=== PATIENT | female | born 1970 | race Caucasian/White ===

== ENCOUNTER 2024-07-29 09:06 | Inpatient (IN) ==
[2024-07-29] MEDS ORDERED: IOPAMIDOL 100 ML BOTTLE IV ONE (09:07)
[2024-07-29] MEDS: IPRATROPIUM/ALBUTEROL 3 ML AMPUL.NEB NEB ONE ×2 (09:30)
[2024-07-29 09:36] LABS: Basophils # (Auto) 0.01 K/mcL (0.00-0.30); Basophils % (Auto) 0.1 % (0.0-2.0); Eosinophils # (Auto) 0 K/mcL (0.00-0.70); Eosinophils % (Auto) 0 % (0.0-7.0); Hematocrit 44.7 % (34.1-44.9); Lymphocytes # (Auto) 1.92 K/mcL (1.50-4.80); Lymphocytes % (Auto) 14.6 % (15.5-49.0); Mean Cell Volume 92.4 fL (80.0-100.0); Mean Corpuscular HGB Conc 33.6 g/dL (31.0-36.0); Mean Platelet Volume 8.6 fL (8.8-12.5); Monocytes # (Auto) 0.45 K/mcL (0.10-0.90); Monocytes % (Auto) 3.4 % (1.0-12.0); Neutrophils % (Auto) 81.5 % (38.0-78.0); Platelet Count 304 K/mcL (140-440); RBC 4.84 M/mcL (3.59-5.38); Red Cell Distribution Width 13.9 % (11.5-14.5); WBC 13.2 K/mcL (4.5-11.0)
[2024-07-29 09:50] LABS: ABG Methemoglobin 0.3 % (0.4-1.5); VBG Base Excess -6 (-2-3); VBG HCO3 15.2 mmol/L (24.0-28.0); VBG Oxygen Saturation 91.8 % (40.0-70.0); VBG PCO2 22.8 mmHg (41.0-51.0); VBG PH 7.44 U (7.32-7.42); VBG PO2 121.9 mmHg (25.0-40.0); VBG Total CO2 15.9 mmol/L (25.0-29.0)
[2024-07-29 10:04] LABS: Blood Urea Nitrogen 16 mg/dL (6-20); Calcium 8.8 mg/dL (8.6-10.4); Carbon Dioxide 17 mmol/L (22-30); Chloride 102 mmol/L (96-108); Glomerular Filtration Rate 98; Glucose 161 mg/dL (70-105); Potassium 3.6 mmol/L (3.3-5.1); Sodium 136 mmol/L (133-145)
[2024-07-29] MEDS: methylPREDNISolone SOD SUCC 125 MG/2 ML VIAL IV ONE (10:05)
[2024-07-29] MEDS: cefTRIAXone 2 GM in DEXTROSE 5% IN WATER 50 ML IV ONE (10:58)
[2024-07-29] MEDS: AZITHROMYCIN 500 MG in 0.9 % SODIUM CHLORIDE 250 ML IV ONE (11:31)
[2024-07-29] MEDS ORDERED: ONDANSETRON 4 MG/2 ML VIAL IV PRN (14:16)
[2024-07-29] MEDS ORDERED: MAGNESIUM SULFATE 2 GM/50 ML BAG IV PRN (14:16)
[2024-07-29] MEDS ORDERED: POTASSIUM CHLORIDE 40 MEQ in DEXTROSE 5% IN WATER 500 ML IV PRN (14:16)
[2024-07-29] MEDS ORDERED: POLYETHYLENE GLYCOL 3350 17 GM PACKET PO PRN (14:16)
[2024-07-29] MEDS ORDERED: BENZOCAINE/MENTHOL 1 LOZENGE PO PRN (14:16)
[2024-07-29] MEDS ORDERED: METOCLOPRAMIDE 10 MG/2 ML VIAL IV PRN (14:16)
[2024-07-29] MEDS ORDERED: ACETAMINOPHEN 325 MG TABLET PO PRN (14:16)
[2024-07-29] MEDS ORDERED: POTASSIUM CHLORIDE 20 MEQ TABLET PO PRN ×2 (14:16)
[2024-07-29] MEDS ORDERED: SENNOSIDES 1 TABLET PO PRN (14:16)
[2024-07-29] MEDS: 0.9 % SODIUM CHLORIDE 10 ML SYRINGE IV SCH (16:15)
[2024-07-29] MEDS ORDERED: SUMAtriptan SUCCINATE 50 MG TABLET PO PRN (16:30)
[2024-07-29] MEDS: DOCUSATE SODIUM 100 MG CAPSULE PO SCH (22:24)
[2024-07-29] MEDS ORDERED: diphenhydrAMINE 25 MG CAPSULE PO PRN (22:37)
[2024-07-29] MEDS: MELATONIN 3 MG TABLET PO PRN (23:16)
[2024-07-29] MEDS: guaiFENesin/CODEINE 10 ML UDC PO PRN (23:16)
[2024-07-30] MEDS: MELATONIN 3 MG TABLET PO ONE (00:23)
[2024-07-30 07:16] LABS: Basophils # (Auto) 0.03 K/mcL (0.00-0.30); Basophils % (Auto) 0.2 % (0.0-2.0); Eosinophils # (Auto) 0 K/mcL (0.00-0.70); Eosinophils % (Auto) 0 % (0.0-7.0); Hematocrit 42.1 % (34.1-44.9); Hemoglobin 14.2 g/dL (11.2-15.7); Lymphocytes # (Auto) 2.42 K/mcL (1.50-4.80); Lymphocytes % (Auto) 13.6 % (15.5-49.0); Mean Cell Volume 91.7 fL (80.0-100.0); Mean Corpuscular HGB Conc 33.7 g/dL (31.0-36.0); Mean Platelet Volume 9.8 fL (8.8-12.5); Monocytes # (Auto) 0.93 K/mcL (0.10-0.90); Monocytes % (Auto) 5.2 % (1.0-12.0); Neutrophils % (Auto) 80.8 % (38.0-78.0); Platelet Count 335 K/mcL (140-440); RBC 4.59 M/mcL (3.59-5.38); Red Cell Distribution Width 14.2 % (11.5-14.5); WBC 17.7 K/mcL (4.5-11.0)
[2024-07-30 07:48] LABS: ALT/SGPT 22 U/L (<40); AST/SGOT 22 U/L (<32); Albumin 3.8 gm/dL (3.2-5.2); Albumin/Globulin Ratio 1.4 (1.0-2.3); Alkaline Phosphatase 68 U/L (39-117); Bilirubin,Direct < 0.2 mg/dL (0-0.3); Bilirubin,Total < 0.2 mg/dL (0.1-1.0); Blood Urea Nitrogen 19 mg/dL (6-20); Calcium 8.6 mg/dL (8.6-10.4); Carbon Dioxide 22 mmol/L (22-30); Chloride 101 mmol/L (96-108); Globulin 2.8 gm/dL (2.2-3.7); Glomerular Filtration Rate 98; Glucose 108 mg/dL (70-105); Lactate Dehydrogenase 233 U/L (135-225); Potassium 4.4 mmol/L (3.3-5.1); Sodium 138 mmol/L (133-145); Triglycerides 62 mg/dL (<150)
[2024-07-30] MEDS: IPRATROPIUM/ALBUTEROL 3 ML AMPUL.NEB NEB PRN (08:43)
[2024-07-30] MEDS: ENOXAPARIN 40 MG/0.4 ML SYRINGE SQ SCH (09:02)
[2024-07-30] MEDS: AZITHROMYCIN 500 MG in 0.9 % SODIUM CHLORIDE 250 ML IV SCH (09:02)
[2024-07-30] MEDS: LISINOPRIL 20 MG TABLET PO SCH (09:02)
[2024-07-30] MEDS: cefTRIAXone 1 GM VIAL IV SCH (09:03)
[2024-07-30 10:06] LABS: Band Neutrophils % 5 % (0-10); Lymphocytes % 12 % (15-49); Monocytes % (Manual) 7 % (1-12); Platelet Estimate NORMAL (Normal); RBC Morphology NORMAL (Normal); Segmented Neutrophils % 76 % (38-78)
[2024-07-30] MEDS: MELATONIN 3 MG TABLET PO PRN (20:07)
[2024-07-31 06:36] LABS: Basophils # (Auto) 0.03 K/mcL (0.00-0.30); Basophils % (Auto) 0.4 % (0.0-2.0); Eosinophils # (Auto) 0.09 K/mcL (0.00-0.70); Eosinophils % (Auto) 1.1 % (0.0-7.0); Lymphocytes # (Auto) 3.64 K/mcL (1.50-4.80); Lymphocytes % (Auto) 45.6 % (15.5-49.0); Mean Cell Volume 91.5 fL (80.0-100.0); Mean Corpuscular HGB Conc 34.1 g/dL (31.0-36.0); Mean Platelet Volume 8.5 fL (8.8-12.5); Monocytes % (Auto) 8.8 % (1.0-12.0); Neutrophils % (Auto) 43.8 % (38.0-78.0); Platelet Count 266 K/mcL (140-440); RBC 4.48 M/mcL (3.59-5.38); Red Cell Distribution Width 14.2 % (11.5-14.5)
[2024-07-31 07:18] LABS: C-Reactive Protein 4.17 mg/dL (0.03-0.80)
[2024-07-31 07:19] LABS: ALT/SGPT 25 U/L (<40); AST/SGOT 27 U/L (<32); Albumin 3.5 gm/dL (3.2-5.2); Albumin/Globulin Ratio 1.3 (1.0-2.3); Alkaline Phosphatase 67 U/L (39-117); Bilirubin,Direct < 0.2 mg/dL (0-0.3); Bilirubin,Total 0.2 mg/dL (0.1-1.0); Blood Urea Nitrogen 14 mg/dL (6-20); Calcium 8.8 mg/dL (8.6-10.4); Carbon Dioxide 26 mmol/L (22-30); Chloride 102 mmol/L (96-108); Globulin 2.6 gm/dL (2.2-3.7); Glomerular Filtration Rate 103; Glucose 99 mg/dL (70-105); Lactate Dehydrogenase 293 U/L (135-225); Phosphorous 3.3 mg/dL (2.5-4.5); Potassium 4.1 mmol/L (3.3-5.1); Sodium 140 mmol/L (133-145); Triglycerides 75 mg/dL (<150); Uric Acid 2.8 mg/dL (2.5-8.0)
[2024-07-31] MEDS: valACYclovir 500 MG TABLET PO SCH (12:22)
[2024-07-31] MEDS: ACYCLOVIR 200 MG/5 ML PO SCH (12:25)
[2024-08-01 07:22] VITALS: TEMP 98.2
[2024-08-01 11:56] VITALS: O2SAT 94
[2024-08-02 13:09] LABS: Legionella pneumophilia Ag, Ur Negative (Negative)
== END 2024-08-01 11:50 | disposition home or self-care (01) | DRG 871 ==
LOC: ED 09:06 → MEDSUR 14:06
PROVIDERS: ADMIT Internal Medicine; ATTEND Internal Medicine